=== PATIENT | male | born 1950 | race Caucasian/White ===

== ENCOUNTER 2019-03-27 13:24 | Inpatient (IN) | payer MEDICARE ==
[~2019-03-27 13:24] MED LIST: Lidocaine 1% PF 5 ML VIAL ONE; PHENYLEPHRINE-NS 100 MCG/ML 10 ML SYRINGE ONE; PROPOFOL 200 MG/20 ML VIAL ONE; Rocuronium Bromide 10 MG/ML (10ML VIAL) ONE; Succinylcholine Chloride 20 MG/ML 10 ml SYRINGE FS ONE; Vecuronium 10 MG VIAL ONE; ePHEDrine 50 MG/ML VIAL ONE
[2019-03-27 14:07] LABS: #Eosinphils 0.4 thou/uL (0.0-0.7); #Lymphocytes 1.7 thou/uL (1.20-3.40); #Monocytes 0.8 thou/uL (0.11-0.59); #Neutrophils 5.1 thou/uL (1.40-6.50); %Basophils 0.5 % (0.0-1.0); %Eosinophils 5.4 % (0.0-10.0); %Lymphocytes 20.8 % (21.0-51.0); %Monocytes 10.1 % (0.0-10.0); %Neutrophils 63.2 % (42.0-75.0); Hemoglobin 9.9 g/dL (14.0-18.0); Mean Corpuscular HGB CONC 33.9 g/dL (32.0-36.0); Mean Corpuscular Hemoglobin 30.8 pg (27.0-31.0); Mean Corpuscular Volume 90.8 fL (78.0-98.0); Mean Platelet Volume 7.9 fL (7.4-10.4); Platelet Count 224 thou/uL (130-400); RBC Distribution Width 12.1 % (11.5-14.5); White Blood Cell (WBC) Count 8.1 thou/uL (4.8-10.8)
--- NOTE | 2019-03-27 14:37 | RAD ---
PORTABLE CHEST: Date: 03-27-19 Provided Clinical History: Dyspnea. FINDINGS: Comparison 11-27-16. Cardiac and mediastinal silhouette are unchanged in appearance. Vascular calcification involves the a ortic arch. Prominence of the pulmonary interstitium appears similar to the prior study. There is no focal consolidation, pleural fluid or pneumothorax apparent. IMPRESSION: No evidence for an acute cardiopulmonary process. POS: TPC
[2019-03-27] MEDS ORDERED: Bupivacaine HCl 0.5%/Epinephrine 1:200,000/PF 30 ml Vial ONE (15:25)
[2019-03-27] MEDS ORDERED: Neomycin-Polymyxin 1 ML AMP ONE (15:25)
[2019-03-27 15:38] LABS: Anion Gap 12 mmol/L (10-20); BUN (Urea Nitrogen) 19 mg/dL (8.4-25.7); Calc. Creatinine Clearance 0 mL/min (70-130); Calcium 8.9 mg/dL (7.8-10.44); Carbon Dioxide 33 mmol/L (23-31); Chloride 95 mmol/L (98-107); Estimated GFR-MDRD 11; Glucose 246 mg/dL (80-115); Potassium 3.8 mmol/L (3.5-5.1); Sodium 136 mmol/L (136-145)
[2019-03-27] MEDS ORDERED: Clindamycin/D5W 900 mg/50 ml Premix Bag ONE (15:56)
[2019-03-27] MEDS ORDERED: Levofloxacin 500 mg/D5W 100 ml Premix Bag ONE (15:56)
[2019-03-27] MEDS ORDERED: Lidocaine 2% Jelly 5 ML TUBE ONE (15:59)
[2019-03-27] MEDS ORDERED: Fentanyl 100 MCG/2 ML VIAL ONE ×2 (15:59)
[2019-03-27] MEDS ORDERED: Midazolam HCl 2 mg/2 ml Vial ONE ×2 (15:59→17:05)
[2019-03-27] MEDS ORDERED: Ketamine 50 MG/ML (10ML VIAL) ONE (16:03)
[2019-03-27] MEDS ORDERED: Phenylephrine HCL 10 MG/ML VIAL ONE (16:51)
[2019-03-27] MEDS ORDERED: Vancomycin HCl 1 GM in Sodium Chloride 0.9% 250 ML 300 ML IVPB SCH (17:40)
[2019-03-27] MEDS ORDERED: niCARdipine 25 MG in Sodium Chloride 0.9% 250 ML 250 ML IVPB PRN (17:40)
[2019-03-27] MEDS ORDERED: Norepinephrine 8 MG/0.9% NS 250 ML IVPB PRN (17:40)
[2019-03-27] MEDS ORDERED: Ventilator Sedation Protocol 1 EACH FS SCH (17:40)
[2019-03-27 17:42] LABS: Actual Bicarbonate (HCO3a) 31.3 mEq/L (22-28); Base Excess (BEa) 6.8 mEq/L (-2.0 to +3.0); CO2 Tension 44.9 mmHg (35.0-45.0); Calcium, Ionized 1.03 mmol/L (1.12-1.30); Carboxyhemoglobin (COHb) 1.3 gm% (0.0-3.0); Hemoglobin (Hb) 9.2 g/dL (14.0-18.0); O2 Tension (PaO2) 65.7 mmHg (> 80.0); Potassium - ABG Lab 3.31 mmol/L (3.70-5.30); pH, Arterial 7.46 (7.35-7.45)
[2019-03-27 17:44] LABS: ALV-art Gradient 163.375 (0-20); Puncture Site RBRACH
--- NOTE | 2019-03-27 17:53 | RAD ---
XR Chest 1 View Portable HISTORY: Intubation COMPARISON: Earlier exam of the same day. FINDINGS: An endotracheal tube is in place which is in satisfactory position. No other interval vaca [place] IMPRESSION: Endotracheal tube in satisfactory position.
[2019-03-27] MEDS ORDERED: Sodium Chloride 0.9% 1,000 ML IV SCH ×2 (18:00→19:30)
[2019-03-27] MEDS ORDERED: Morphine 2 MG/ML SYRINGE SLOW IVP PRN (18:08)
[2019-03-27] MEDS ORDERED: Fentanyl BOLUS 250 ML IVPB PRN (18:08)
[2019-03-27] MEDS ORDERED: DISCONTINUE PREVIOUS NARCOTIC PAIN MEDICATIONS AND BENZODIAZEPINES FS SCH (18:08)
[2019-03-27] MEDS ORDERED: Lorazepam 2 MG/ML VIAL SLOW IVP PRN (18:08)
[2019-03-27] MEDS ORDERED: fentaNYL Citrate/PF 2,000 MCG in Sodium Chloride 0.9% 60 ML IV SCH (18:08)
[2019-03-27] MEDS ORDERED: Propofol BOLUS 1,000 MG/100 ML VIAL IV PRN (18:08)
[2019-03-27] MEDS ORDERED: Norepinephrine 8 MG in Dextrose 5% in Water 242 ML IVPB PRN (18:11)
[2019-03-27] MEDS ORDERED: Norepinephrine 8 MG in Sodium Chloride 0.9% 250 ML 242 ML IVPB PRN (18:22)
[2019-03-27] MEDS ORDERED: Dextrose 5% in Water 1,000 ML IV PRN (18:23)
[2019-03-27] MEDS ORDERED: Dextrose 50% Abboject 50 ML SYRINGE IVP PRN (18:23)
[2019-03-27] MEDS ORDERED: Vancomycin HCl 1 GM in Premix Bag 1 BAG IVPB SCH (18:30)
[2019-03-27] MEDS: methylPREDNISolone Sod Succ 40 MG VIAL IVP SCH ×2 (18:35→23:22)
[2019-03-27] MEDS: Propofol 1,000 MG/100 ML VIAL IV PRN ×2 (19:00→23:47)
[2019-03-27] MEDS: Famotidine/PF 20 mg/2ml Vial SLOW IVP SCH (20:36)
[2019-03-27] MEDS: Bacteriostatic Water 30 ML VIAL FS PRN (23:23)
--- NOTE | 2019-03-28 01:29 | HP ---
HISTORY OF PRESENT ILLNESS: This is a 68-year-old gentleman who underwent a coronary artery bypass grafting to the LAD and OM on 03/04/2019, at [facility] at the patient's request. His postoperative course was remarkable for pulmonary issues with coughing and paroxysms that were rather violent. The patient had some confusion while in the hospital, but for the most part, cooperated with physical therapy. He had previously been a pack-a-day smoker. Prior to his surgery, I instructed him that he needed to be off cigarettes for 2 weeks prior to surgery. The patient called the office and stated that he had stopped smoking, however, on presentation to the [facility] on 03/04, admitted that he had had a cigarette on the way to the hospital and that was his last one. PAST MEDICAL HISTORY: Includes insulin-dependent diabetes mellitus as well as hypertension and chronic renal failure, on hemodialysis q. M, W, F with Dr. Roblero in the past and currently with Dr. Fu. MEDICATIONS: Before his surgical intervention included: 1. Clonidine patch 0.3 mg weekly. 2. Minoxidil 5 mg b.i.d. 3. Omeprazole 40 mg a day. 4. Coreg 25 b.i.d. 5. Amlodipine 5 daily. 6. Clonidine 0.1 b.i.d. 7. Gabapentin 100 t.i.d. 8. Hydralazine 50 t.i.d. 9. Toujeo SoloStar 300 unit injector and I do not know his dose at home. At the time of discharge from [facility], he was on: 1. Aspirin 325 a day. 2. Atorvastatin 20 a day. 3. Tramadol as needed for pain. 4. Norvasc 5 mg a day. 5. Coreg 25 mg b.i.d. 6. Clonidine 0.3 mg patch. 7. Clonidine 0.1 b.i.d. 8. Omeprazole 40 mg daily. 9. Gabapentin 100 t.i.d. 10. Hydralazine 50 t.i.d. 11. Combivent inhaler. 12. Minoxidil 5 mg b.i.d. ALLERGIES: REPORTED TO PENICILLIN. PAST SURGICAL HISTORY: Cardiac cath with stent placement at some time in the past, left arm AV fistula, umbilical hernia repair with mesh, remote appendectomy, ACL repair, remote cholecystectomy and peritoneal dialysis catheter in 2015 converted to hemodialysis due to recurrent peritonitis. SOCIAL HISTORY: The patient is , retired from the construction business. PHYSICAL EXAMINATION: GENERAL: He is an alert and cooperative gentleman. Recorded height of 5 feet 7 inches, weight of about 190 pounds. NECK: No carotid bruits. CARDIAC: Regular rate and rhythm. No murmurs. CHEST: Incision widely opened in the lower one-half with bloody dressings in place. No active bleeding. ABDOMEN: Soft and nontender. EXTREMITIES: He has palpable femoral and popliteal pulses with no pedal pulses and his left arm has an AV fistula that has a good thrill. PLAN: At this time, is sternal debridement and washout and anticipate wound VAC placement if possible. I suspect he has a fairly complete sternal dehiscence and due to the fact that his wound is open, probably not safe to close the skin primarily with multiple bone fragments due to the risk of future infection. We will likely require several operative interventions to obtain closure. Job ID: [id number]
--- NOTE | 2019-03-28 01:57 | CON ---
DATE OF CONSULTATION: CONSULTING PHYSICIAN: Nickie Pearce MD REQUESTING PHYSICIAN: Dr. West. REASON FOR CONSULTATION: Need for maintenance hemodialysis. IMPRESSION: 1. End-stage renal disease on Sunday, Sunday, and Sunday schedule dialysis. 2. Coronary artery disease, status post recent coronary artery bypass surgery. 3. Wound dehiscence, likely in the context of wound infection. PLAN: 1. There is no emergent indication for dialysis, the patient is to be dialyzed tomorrow in accordance with the schedule with ultrafiltration as tolerated by hemodynamics. 2. Further management will be dependent on the clinical course. HISTORY OF PRESENT ILLNESS: History is that of a 68-year-old gentleman who recently did undergo coronary artery bypass surgery at [facility] due to multivessel disease. The patient has been recuperating very well, but for some time has been experiencing a little bleed around the surgical site which has increased lately necessitating presentation here where the patient has been diagnosed with wound infection, status post surgical fixation and wound VAC placement. The need for maintenance hemodialysis necessitated this consultation. PAST MEDICAL HISTORY: Significant for, 1. End-stage renal disease. 2. Coronary artery disease, status post coronary artery bypass surgery. 3. Anemia, likely anemia of chronic kidney disease. 4. Hypertension. FAMILY HISTORY: Not significantly related to presenting illness. SOCIAL HISTORY: . Denies alcohol, tobacco, or illicit drug use. REVIEW OF SYSTEMS: As documented in the body of history. All the other systems were reviewed and found not to be significantly related to present illness. PHYSICAL EXAMINATION: GENERAL: The patient was found to be intubated with the following vital signs. VITAL SIGNS: Blood pressure of 133/65, pulse of 67. HEENT: Remarkable for endotracheal tube in place. CARDIOVASCULAR SYSTEM: First and second heart sounds were heard. RESPIRATORY: Clear to auscultation. DIGESTIVE SYSTEM: Revealed a benign abdomen. EXTREMITIES: No peripheral edema. SKIN: No new gross rash. LYMPHATICS: No peripheral lymphadenopathy. SUMMARY: A 68-year-old gentleman with end-stage renal disease, who presented here with infected surgical site, status post coronary artery bypass. Thank you for this consultation. We will follow with you. Job ID: [id number]
[2019-03-28] MEDS: methylPREDNISolone Sod Succ 40 MG VIAL IVP SCH ×3 (05:47→17:50)
[2019-03-28] MEDS: Propofol 1,000 MG/100 ML VIAL IV PRN (05:47)
[2019-03-28 06:55] LABS: Actual Bicarbonate (HCO3a) 29.5 mEq/L (22-28); Base Excess (BEa) 3.4 mEq/L (-2.0 to +3.0); CO2 Tension 52.3 mmHg (35.0-45.0); Calcium, Ionized 1.06 mmol/L (1.12-1.30); Carboxyhemoglobin (COHb) 0.7 gm% (0.0-3.0); Hemoglobin (Hb) 10.7 g/dL (14.0-18.0); O2 Tension (PaO2) 76.4 mmHg (> 80.0); Potassium - ABG Lab 4.34 mmol/L (3.70-5.30); pH, Arterial 7.37 (7.35-7.45)
[2019-03-28 07:01] LABS: Puncture Site RBA
[2019-03-28 07:02] LABS: ALV-art Gradient 214.725 (0-20)
--- NOTE | 2019-03-28 08:13 | RAD ---
EXAM: 1 view chest PROVIDED CLINICAL HISTORY: Postoperative intubation. COMPARISON: 03/27/2019 FINDINGS: Endotracheal tube remains in place and unchanged in position. Postsurgical changes related to CABG ar e again noted. There is atelectasis present present at each lung base. There has been no other interval change compared to prior exam. IMPRESSION: Stable chest..
[2019-03-28 08:32] LABS: Anion Gap 19 mmol/L (10-20); BUN (Urea Nitrogen) 23 mg/dL (8.4-25.7); Calc. Creatinine Clearance 14 mL/min (70-130); Calcium 8.9 mg/dL (7.8-10.44); Carbon Dioxide 27 mmol/L (23-31); Chloride 95 mmol/L (98-107); Estimated GFR-MDRD 9; Glucose 196 mg/dL (80-115); Potassium 4.5 mmol/L (3.5-5.1); Sodium 136 mmol/L (136-145)
[2019-03-28 08:36] LABS: #Lymphocytes 1.1 thou/uL (1.20-3.40); #Monocytes 0.3 thou/uL (0.11-0.59); #Neutrophils 7.8 thou/uL (1.40-6.50); %Eosinophils 0.4 % (0.0-10.0); %Lymphocytes 12.1 % (21.0-51.0); %Monocytes 3.1 % (0.0-10.0); %Neutrophils 84.3 % (42.0-75.0); Hemoglobin 10.6 g/dL (14.0-18.0); Mean Corpuscular HGB CONC 34.2 g/dL (32.0-36.0); Mean Corpuscular Hemoglobin 31.2 pg (27.0-31.0); Mean Corpuscular Volume 91.2 fL (78.0-98.0); Mean Platelet Volume 8.3 fL (7.4-10.4); Platelet Count 240 thou/uL (130-400); RBC Distribution Width 12.2 % (11.5-14.5); Red Blood Cell (RBC) Count 3.41 mill/uL (4.70-6.10); White Blood Cell (WBC) Count 9.2 thou/uL (4.8-10.8)
[2019-03-28] MEDS: Insulin Regular 300 UNITS/3 ML VIAL SC PRN ×3 (09:21→23:35)
--- NOTE | 2019-03-28 09:24 | CON ---
DATE OF CONSULTATION: 03/28/2019 HISTORY OF PRESENT ILLNESS: Mr. Zhu was seen this morning. He underwent an operative procedure last night for a dehiscence of his sternum. We were consulted to assist in management in the ICU. He was left intubated with a wound VAC in place. Recently underwent coronary artery bypass grafting. Apparently, presented to [facility] with some bloody drainage coming from his wound. He was discharged home and then coughed and had dehiscence of his wound, and subsequently, admitted here for an operative procedure. PAST MEDICAL HISTORY: Remarkable for, 1. Coronary artery disease with recent bypass surgery. 2. History of diabetes. 3. History of chronic kidney disease with dialysis on Sunday, Sunday, Fridays. 4. History of hypertension. 5. History of lipid disorder. 6. History of coronary stenting in the past. 7. History of vascular access procedures. 8. History of an umbilical herniorrhaphy with mesh. 9. History of an appendectomy. 10. History of a knee surgery. 11. History of cholecystectomy. 12. History of peritoneal dialysis initially complicated by recurrent peritonitis. SOCIAL HISTORY: He is a nonsmoker and nondrinker. Retired from [employer] business. ALLERGIES: she reports ALLERGIES TO PENICILLIN. REVIEW OF SYSTEMS: Not obtainable. PHYSICAL EXAMINATION: GENERAL: Intubated, in no distress. VITAL SIGNS: Blood pressure was 95/52 when he was sedated. Heart rate was in the 60s. Respiratory rate was 12. Turned off his sedation, and throughout the morning, we have done a spontaneous breathing trial initially with pressure support of 10 , 5 of PEEP, and pressure support of 5 and 3 of PEEP. HEENT: Pupils are reactive. Sclerae are anicteric. CHEST: His sternum is bandaged with a wound VAC. LUNGS: Clear. HEART: Regular rhythm. ABDOMEN: Soft and nontender. EXTREMITIES: Without asymmetry or edema. LABORATORY DATA: White count 9.2, hemoglobin 10.6, platelets 240. Sodium 136, potassium 4.5, chloride 95, bicarb 27, BUN 23, creatinine 6.17. PH of 7.37, CO2 of 52, pO2 is 76. Gram-negative rods growing out of his sternum. IMPRESSION: Sternal dehiscence associated with a wound infection. He is on a quinolone and vancomycin. I am surprised that this is a gram-negative sternal infection as opposed to a Staph infection. I felt he was a candidate for extubation after spontaneous breathing trial. This has been done successfully. Would probably need dialysis today or tomorrow. Today is his normal day, so hopefully we can get this arranged. He does not have any evidence of pulmonary edema at this time on chest radiograph. We will follow along with the other physicians caring for him. Critical care time is 35 minutes. Job ID: [id number] MTDD
--- NOTE | 2019-03-28 11:48 | OP ---
DATE OF PROCEDURE: 03/27/2019 PREOPERATIVE DIAGNOSIS: Sternal dehiscence from violent coughing spells. PROCEDURE STERNAL: Sternal exploration, debridement, and placement of wound VAC. ANESTHESIA: General. ESTIMATED BLOOD LOSS: Minimal. DESCRIPTION OF PROCEDURE: After adequate anesthesia had been obtained, the patient was prepped and draped. The sternal wound was already opened and suture material was removed. It was free in the wound. Two wires had pulled completely through one side of the sternum. Each of these were cut and removed. The two bottom zip ties were intact with both had pulled through the sternum and these were cut and removed. The uppermost zip ties and the manubrial wires were not removed at this time to help to some extent hold the bone close to the midline to minimize the risk of right ventricular laceration. Some sternal bone fragments were debrided as were some sharp edges and then the area was thoroughly irrigated and the curette was used to remove any clots on this subcutaneous tissue. Wound VAC was then placed with packing in between the bones to minimize motion. #2 nylon sutures were placed, 2 at the upper part and 1 at the bottom part of the incision also to help minimize motion. The patient is to be taken to the ICU in guarded condition. Job ID: [id number]
[2019-03-28] MEDS ORDERED: HYDROcodone/Acetaminophen 5/325 mg Tablet PO PRN (16:03)
[2019-03-28] MEDS: HYDROcodone/Acetaminophen 5/325 mg Tablet PO PRN ×2 (16:41→22:01)
[2019-03-28] MEDS: Famotidine/PF 20 mg/2ml Vial SLOW IVP SCH (20:05)
--- NOTE | 2019-03-28 22:33 | PRG ---
DATE OF SERVICE: 03/28/2019 SUBJECTIVE: The patient was seen and examined, noted with the following vital signs. OBJECTIVE: VITAL SIGNS: Blood pressure 130/59, pulse of 83, respiratory rate of 19, O2 saturation 92% to 95%. HEENT: Unremarkable. CARDIOVASCULAR: First and second heart sounds were heard. RESPIRATORY: Clear to auscultation. DIGESTIVE SYSTEM: Revealed a benign abdomen. Positive bowel sounds. EXTREMITIES: No peripheral edema. SKIN: No new gross rash. LYMPHATICS: No peripheral lymphadenopathy. IMPRESSION: 1. End-stage renal disease, on hemodialysis, due for dialysis today. 2. Coronary artery disease status post recent bypass surgery. 3. Wound dehiscence/infection of the surgical wound. PLAN: 1. The patient to be dialyzed today in accordance with the schedule with ultrafiltration as tolerated by hemodynamics. 2. Further management will be dependent on the clinical course. Job ID: [id number]
[2019-03-29] MEDS: methylPREDNISolone Sod Succ 40 MG VIAL IVP SCH ×3 (00:29→11:26)
[2019-03-29] MEDS: HYDROcodone/Acetaminophen 5/325 mg Tablet PO PRN (02:14)
[2019-03-29] MEDS: Bacteriostatic Water 30 ML VIAL FS PRN (06:21)
[2019-03-29] MEDS: Insulin Regular 300 UNITS/3 ML VIAL SC PRN ×4 (06:22→20:34)
[2019-03-29] MEDS ORDERED: traMADol HCl 50 MG TAB PO PRN (09:14)
[2019-03-29] MEDS ORDERED: Insulin Glargine 15 UNITS in Pre-Filled Syringe 1 EACH SC SCH (11:30)
[2019-03-29] MEDS: Benzonatate 100 MG CAP PO PRN ×2 (11:50→20:32)
--- NOTE | 2019-03-29 11:57 | PRG ---
DATE OF SERVICE: 03/29/2019 SERVICE: Pulmonary Medicine. INTERVAL HISTORY: The patient is doing fine from respiratory standpoint. He is breathing comfortably. Every once in a while, he has a little bit of chest discomfort, which is exacerbated by coughing. He would like a cough suppressant. He is actually on his MAR, but he has not told his nursing staff that he would like one. He denies any current fevers, chills, nausea, or vomiting. Otherwise, there are no significant overnight events. After he got some insulin, he felt like his sugars went too low, though they were normal. PHYSICAL EXAMINATION: VITAL SIGNS: Afebrile, pulse 86, blood pressure 163/101, respirations 22, and saturation 93% on 2 L nasal cannula. GENERAL: The patient is awake and alert, in no apparent distress. LUNGS: Decent air entry. There is a slightly prolonged expiratory phase. A little bit of wheezing and crackles are both present. HEART: Normal rate. Regular. ABDOMEN: Soft, nontender, and nondistended. Bowel sounds are positive. MUSCULOSKELETAL: No cyanosis or clubbing. There is no pitting edema. NEUROLOGIC: Grossly nonfocal. LABORATORY DATA: Blood sugars ranged from 109 to 252. Sternal fluid is growing Proteus species. ASSESSMENT: 1. Acute hypoxic respiratory failure. 2. Chronic obstructive pulmonary disease with minimal exacerbation. 3. Sternal wound infection secondary to Proteus. 4. Recent coronary artery bypass graft. 5. Type 2 diabetes mellitus, uncontrolled. 6. End-stage renal disease. DISCUSSION AND PLAN: I will introduce some long-acting insulin. We will continue his short-acting insulin if necessary. Pulmonary/Critical Care will continue to follow along while the patient remains in the hospital. From my perspective, he is stable for transition out of the ICU. Job ID: [id number]
[2019-03-29] MEDS ORDERED: Benzonatate 100 MG CAP PO SCH (13:00)
[2019-03-29 13:43] VITALS: BMI 26.6
[2019-03-29] MEDS: traMADol HCl 50 MG TAB PO PRN (18:16)
[2019-03-29] MEDS: Famotidine/PF 20 mg/2ml Vial SLOW IVP SCH (20:32)
[2019-03-30] MEDS: predniSONE 20 MG TAB PO SCH (07:40)
[2019-03-30] MEDS: Carvedilol 25 MG TAB PO SCH ×2 (08:25→20:32)
[2019-03-30] MEDS: Amlodipine 5 MG TAB PO SCH (08:25)
[2019-03-30] MEDS: Insulin Glargine 15 UNITS in Pre-Filled Syringe 1 EACH SC SCH (08:26)
--- NOTE | 2019-03-30 09:28 | PRG ---
DATE OF SERVICE: 03/30/2019 SERVICE: Pulmonary Medicine. INTERVAL HISTORY: The patient is doing really well from respiratory standpoint. He is breathing comfortably. His wound VAC sprung a leak last night. As such, he ended up, but not having being on full suction. The Wound VAC team has just replaced his dressing. He denies any current chest pain, shortness of breath, nausea, or vomiting. Otherwise, he is in his usual state of health. His family yesterday was feeding him jelly donuts. We have asked him not to take outside food with high carbohydrate content, especially since that is part of the reason he has returned to the hospital. PHYSICAL EXAMINATION: VITAL SIGNS: Afebrile, pulse 83, blood pressure 171/91, respirations 15, and saturation 94% on room air. GENERAL: The patient is awake and alert, in no apparent distress. LUNGS: Decent air entry with no prolonged expiratory phase or wheezing appreciated. HEART: Normal rate. Regular. ABDOMEN: Soft, nontender, and nondistended. Bowel sounds are positive. MUSCULOSKELETAL: No cyanosis or clubbing. No pitting in the bilateral lower extremities. NEUROLOGIC: Grossly nonfocal. LABORATORY DATA: Blood sugars have ranged from 109 to 255. Sternal fluid is growing Proteus mirabilis and Pseudomonas. Both of these are pansensitive species. ASSESSMENT: 1. Acute hypoxic respiratory failure, resolved. 2. Chronic obstructive pulmonary disease with minimal exacerbation. 3. Sternal wound infection secondary to Proteus and Pseudomonas. 4. Recent coronary artery bypass graft. 5. Type 2 diabetes mellitus, improving control. 6. End-stage renal disease. DISCUSSION AND PLAN: We will continue to titrate up his long-acting insulin through time. I will schedule 3 units of premeal insulin. He will remain in the ICU for the time being. Job ID: [id number]
[2019-03-30] MEDS: HumaLOG 300 UNITS/3 ML VIAL SC SCH ×2 (11:36→17:10)
[2019-03-30] MEDS: Insulin Regular 300 UNITS/3 ML VIAL SC PRN ×2 (11:37→20:34)
--- NOTE | 2019-03-30 18:38 | PRG ---
DATE OF SERVICE: 03/30/2019 SUBJECTIVE: The patient was noted with the following vital signs. OBJECTIVE: VITAL SIGNS: Blood pressure 173/102, pulse of 78, respiratory rate of 21, and O2 saturation of 95%. HEENT: Unremarkable. CARDIOVASCULAR SYSTEM: First and second heart sounds were heard. RESPIRATORY SYSTEM: Clear to auscultation. DIGESTIVE SYSTEM: Revealed a benign abdomen. Positive bowel sounds. EXTREMITIES: No peripheral edema. SKIN: No new gross rash. LYMPHATICS: No peripheral lymphadenopathy. IMPRESSION: 1. End-stage renal disease, on hemodialysis. 2. Coronary artery disease, status post bypass surgery. 3. Wound dehiscence on treatment with wound VAC. PLAN: 1. The patient to stay in ICU overnight, possibly transition out of ICU after dialysis tomorrow. 2. The patient to continue with scheduled Sunday, Sunday, and Sunday, therefore, the patient is due for dialysis tomorrow. Job ID: [id number]
--- NOTE | 2019-03-30 18:44 | PRG ---
DATE OF SERVICE: 03/29/2019 SUBJECTIVE: The patient noted with the following vital signs. OBJECTIVE: VITAL SIGNS: Blood pressure 159/82, pulse of 82, respiratory rate of 20. HEENT: Unremarkable. CARDIOVASCULAR SYSTEM: First and second heart sounds were heard. RESPIRATORY SYSTEM: Clear to auscultation. DIGESTIVE SYSTEM: Revealed a benign abdomen. EXTREMITIES: No peripheral edema. SKIN: No new gross rash. LYMPHATICS: No peripheral lymphadenopathy. IMPRESSION: 1. End-stage renal disease, on hemodialysis Sunday, Sunday and Sunday, and dialyzed yesterday. 2. Wound dehiscence. 3. Coronary artery disease, status post bypass surgery. PLAN: 1. The patient to continue with current schedule of Sunday, Sunday, and Sunday dialysis. 2. Further management will be dependent on the clinical course. Job ID: [id number]
[2019-03-30] MEDS: Benzonatate 100 MG CAP PO PRN (19:32)
[2019-03-30] MEDS: Famotidine/PF 20 mg/2ml Vial SLOW IVP SCH (20:32)
[2019-03-31] MEDS: Carvedilol 25 MG TAB PO SCH ×2 (07:12→20:51)
[2019-03-31] MEDS: Amlodipine 5 MG TAB PO SCH (07:12)
[2019-03-31] MEDS: predniSONE 20 MG TAB PO SCH (07:12)
[2019-03-31] MEDS: Insulin Glargine 15 UNITS in Pre-Filled Syringe 1 EACH SC SCH ×2 (07:13→20:57)
[2019-03-31] MEDS: HumaLOG 300 UNITS/3 ML VIAL SC SCH ×3 (07:14→17:34)
--- NOTE | 2019-03-31 08:47 | PRG ---
DATE OF SERVICE: 03/31/2019 SUBJECTIVE: This morning, he is awake, alert, and responsive. He was extubated yesterday. Denies any pain or shortness of breath. OBJECTIVE: VITAL SIGNS: His saturations are 98% on room air, pulse is 76, blood pressure 160/88. CHEST: Decreased breath sounds. No wheezing. CARDIAC: Normal S1, S2. No gallops. ABDOMEN: No masses. IMPRESSION: 1. Status post coronary artery bypass grafting, wound dehiscence, infected wound. 2. Renal failure, weakness. PLAN: Disposition as per Surgery. Continue antibiotics, neb treatments, supportive care. We will follow while in the ICU. Job ID: [id number]
[2019-03-31] MEDS ORDERED: Famotidine 20 MG TAB PO SCH (09:00)
[2019-03-31] MEDS: Aspirin 81 mg Enteric Coated Tablet PO SCH (09:33)
[2019-03-31] MEDS: cloNIDine 0.3mg/24 Hour PATCH TD SCH ×2 (09:33→09:34)
[2019-03-31] MEDS: cloNIDine 0.1 MG TAB PO SCH ×2 (09:34→20:51)
[2019-03-31] MEDS: Benzonatate 100 MG CAP PO PRN ×2 (15:47→20:52)
[2019-03-31] MEDS ORDERED: Sodium Chloride 0.9% 10 ML ONE (20:34)
[2019-03-31] MEDS: Famotidine 20 MG TAB PO SCH (20:51)
[2019-03-31] MEDS: Atorvastatin Calcium 20 MG TAB PO SCH (20:51)
[2019-04-01] MEDS: HumaLOG 300 UNITS/3 ML VIAL SC SCH ×3 (08:27→17:58)
[2019-04-01] MEDS: cloNIDine 0.1 MG TAB PO SCH ×2 (08:29→21:40)
[2019-04-01] MEDS: Aspirin 81 mg Enteric Coated Tablet PO SCH (08:29)
[2019-04-01] MEDS: Amlodipine 5 MG TAB PO SCH ×2 (08:29→21:40)
[2019-04-01] MEDS: Carvedilol 25 MG TAB PO SCH ×2 (08:31→21:40)
[2019-04-01] MEDS: predniSONE 20 MG TAB PO SCH (08:31)
[2019-04-01] MEDS: traMADol HCl 50 MG TAB PO PRN (09:44)
[2019-04-01] MEDS: Insulin Glargine 15 UNITS in Pre-Filled Syringe 1 EACH SC SCH ×2 (09:47→21:41)
--- NOTE | 2019-04-01 10:51 | PRG ---
DATE OF SERVICE: 04/01/2019 SUBJECTIVE: A 68-year-old gentleman, this morning, he denies any pain or discomfort. OBJECTIVE: VITAL SIGNS: Temperature 98, pulse 77, saturations 100%, blood pressure 156/80. CHEST: Decreased breath sounds. No wheezing. CARDIAC: Normal S1 and S2. No gallops. ABDOMEN: No masses. ASSESSMENT: Gram-negative sternal infection, status post coronary artery bypass graft, deconditioning, chronic obstructive pulmonary disease. PLAN: Continue present treatment, supportive care. Pulmonary will follow. Continue antibiotics. Job ID: [id number]
[2019-04-01] MEDS ORDERED: predniSONE 20 MG TAB PO SCH (15:51)
--- NOTE | 2019-04-01 18:44 | PRG ---
DATE OF SERVICE: 04/01/2019 SUBJECTIVE: The patient was seen and examined, seems to be doing much better. OBJECTIVE: VITAL SIGNS: Noted with the following vital signs; afebrile, temperature 97.6, pulse 77, respiratory rate of 15, O2 saturations 96% with blood pressure of 141/76. HEENT: Unremarkable with moist oral mucosa. NECK: Supple. No conjunctival injection or icterus. CARDIOVASCULAR: First and second sounds were heard. RESPIRATORY: Clear to auscultation. DIGESTIVE: Revealed a benign abdomen. Positive bowel sounds. EXTREMITIES: No peripheral edema. SKIN: No new gross rash. LYMPHATICS: No peripheral lymphadenopathy. IMPRESSION: 1. End-stage renal disease, on hemodialysis. 2. Coronary artery disease, status post bypass surgery. 3. Status post wound dehiscence of open heart surgery. PLAN: 1. The patient to continue with current schedule of hemodialysis on Sunday, Sunday, and Sunday. The patient to be due for dialysis tomorrow. 2. Further management to be dependent on the clinical course. Job ID: [id number]
[2019-04-01] MEDS: Benzonatate 100 MG CAP PO PRN (21:39)
[2019-04-01] MEDS: Atorvastatin Calcium 20 MG TAB PO SCH (21:40)
[2019-04-01] MEDS: Famotidine 20 MG TAB PO SCH (21:40)
[2019-04-02] MEDS: HumaLOG 300 UNITS/3 ML VIAL SC SCH ×3 (09:17→18:16)
[2019-04-02] MEDS: Amlodipine 5 MG TAB PO SCH (09:17)
[2019-04-02] MEDS: Carvedilol 25 MG TAB PO SCH (09:21)
[2019-04-02] MEDS: cloNIDine 0.1 MG TAB PO SCH (09:21)
--- NOTE | 2019-04-02 09:52 | PRG ---
DATE OF SERVICE: 04/02/2019 SUBJECTIVE: Darshan Zhu, 60-year-old gentleman being dialyzed this morning. OBJECTIVE: GENERAL: He is in no distress. VITAL SIGNS: Temperature 98, pulse 70, respirations 16, saturations 90% on room air, blood pressure 157/74. CHEST: No wheezing or crackles. CARDIAC: Normal S1 and S2. No gallops. ABDOMEN: No masses. IMPRESSION: Sternal wound infection and status post debridement, chronic renal failure, status post coronary artery bypass graft. PLAN: Continue present care, supportive care, antibiotics. We will follow. Job ID: [id number]
[2019-04-02] MEDS: Insulin Glargine 15 UNITS in Pre-Filled Syringe 1 EACH SC SCH (10:56)
[2019-04-02 12:41] VITALS: TEMP 97.6
[2019-04-02] MEDS: Aspirin 81 mg Enteric Coated Tablet PO SCH (12:42)
[2019-04-02 14:23] VITALS: BP 124/72
[2019-04-02] MEDS: Benzonatate 100 MG CAP PO PRN (19:20)
--- NOTE | 2019-04-03 11:12 | DIS ---
DATE OF ADMISSION: 03/27/2019 DATE OF DISCHARGE: 04/02/2019 HOSPITAL COURSE: This is a 68-year-old gentleman, who underwent coronary artery bypass grafting x2 about 3 weeks prior to this admission. While in the hospital at [facility], at that time, he had rather severe coughing paroxysms. Surprisingly, his sternum appeared to be intact at the time of discharge. Unfortunately, the patient continued to have uncontrollable coughing spells, and on the day prior to admission coughed hard enough to disrupt his lower skin incision and had some bleeding. He was seen in the emergency room and sent home only to return the next day with coughing spell resulted in opening up of his sternal skin incision. He was seen in the emergency room on 03/27/2019 with an open wound, EKG leads draped across his open wound. He was taken to the operating room, where cultures were drawn. He had pulled his lower sternal wires through the sternum as well as his lower 2 zip ties. His uppermost zip ties and sternal wires were left in place to keep his sternum relatively close to the midline to minimize the risk of right ventricular laceration. He had no evidence of infection and cultures were taken at that time and returned normal skin tania as well as few Proteus mirabilis, rare Pseudomonas, and Staph aureus too few to quantitate. His postoperative course was uneventful and he underwent wound VAC changes and hemodialysis. He remained afebrile with a normal white count throughout his hospital course with a hemoglobin of 10 g. He will be discharged home today to follow up with outpatient wound VAC therapy and ultimately will refer to Plastic Surgery for consideration of muscle flap closure. Discharge medications are listed in his reconciliation. Job ID: [id number]
== END 2019-04-02 19:30 | disposition home or self-care (01) | DRG 907 ==
LOC: ERS 13:24 → CCU 17:20 → 2NO 03-31 10:36
PROVIDERS: ADMIT Thoracic Surgery (Cardiothoracic Vascular Surgery); ATTEND Thoracic Surgery (Cardiothoracic Vascular Surgery)
PROC: 0PB00ZZ Excision of Sternum, Open Approach (ICD-10-PCS; principal; 2019-03-27)
PROC: 2W14X6Z Compression of Chest Wall using Pressure Dressing (ICD-10-PCS; 2019-03-27)
PROC: 5A1D70Z Performance of Urinary Filtration, Intermittent, Less than 6 Hours Per Day (ICD-10-PCS; 2019-03-28)
DX: T81.32XA Disruption of internal operation (surgical) wound, not elsewhere classified, initial encounter (principal); J96.01 Acute respiratory failure with hypoxia; N18.6 End stage renal disease; I12.0 Hypertensive chronic kidney disease with stage 5 chronic kidney disease or end stage renal disease; T81.49XA Infection following a procedure, other surgical site, initial encounter; J44.1 Chronic obstructive pulmonary disease with (acute) exacerbation; I25.10 Atherosclerotic heart disease of native coronary artery without angina pectoris; D63.1 Anemia in chronic kidney disease; B96.4 Proteus (mirabilis) (morganii) as the cause of diseases classified elsewhere; E11.22 Type 2 diabetes mellitus with diabetic chronic kidney disease; Z95.1 Presence of aortocoronary bypass graft; Z79.4 Long term (current) use of insulin; Z99.2 Dependence on renal dialysis; Z79.82 Long term (current) use of aspirin; Z79.899 Other long term (current) drug therapy; Z88.0 Allergy status to penicillin; Z95.5 Presence of coronary angioplasty implant and graft; Z90.49 Acquired absence of other specified parts of digestive tract
CPT/HCPCS: 36415; 36416; 71045; 71046; 80048; 82805; 85025; 86850; 86900; 86901; 87070; 87077; 87186; 87205; 90935; 93798; 94002; 94003; 94640; G0257; J0670; J1815; J1956; J2001; J2250; J2370; J2704; J2920; J3010; J3370; J3490; J7512; J7620; S0028

== ENCOUNTER 2019-04-04 11:09 | Outpatient (CLI) | payer MEDICARE ==
[~2019-04-04 11:09] MED LIST changes: -Lidocaine 1% PF 5 ML VIAL ONE; -PHENYLEPHRINE-NS 100 MCG/ML 10 ML SYRINGE ONE; -PROPOFOL 200 MG/20 ML VIAL ONE; -Rocuronium Bromide 10 MG/ML (10ML VIAL) ONE; +Sodium Chloride 0.9% 15 ML NEB ONE; -Succinylcholine Chloride 20 MG/ML 10 ml SYRINGE FS ONE; -Vecuronium 10 MG VIAL ONE; -ePHEDrine 50 MG/ML VIAL ONE
== END 2019-04-04 11:10 | disposition home or self-care (01) ==
LOC: WCC 11:09
PROVIDERS: ATTEND Family Medicine
DX: T81.89XD Other complications of procedures, not elsewhere classified, subsequent encounter (principal)
CPT/HCPCS: 97605; A4218

== ENCOUNTER 2019-04-08 11:22 | Outpatient (CLI) | payer MEDICARE | END 2019-04-08 11:23 | disposition home or self-care (01) | LOC: WCC 11:22 | PROVIDERS: ATTEND Family Medicine | DX: T81.89XD Other complications of procedures, not elsewhere classified, subsequent encounter (principal) | CPT/HCPCS: 97605; A4218 ==

== ENCOUNTER 2019-04-11 08:41 | Outpatient (CLI) | payer MEDICARE | END 2019-04-11 08:42 | disposition home or self-care (01) | LOC: WCC 08:41 | PROVIDERS: ATTEND Family Medicine | DX: T81.89XD Other complications of procedures, not elsewhere classified, subsequent encounter (principal) | CPT/HCPCS: 97605 ==

== ENCOUNTER 2019-04-11 19:51 | Emergency (ER) | payer MEDICARE | END 2019-04-11 21:45 | disposition home or self-care (01) | LOC: ERS 19:51 | DX: T85.698A Other mechanical complication of other specified internal prosthetic devices, implants and grafts, initial encounter (principal); E11.9 Type 2 diabetes mellitus without complications; I10 Essential (primary) hypertension; J44.9 Chronic obstructive pulmonary disease, unspecified; Z99.2 Dependence on renal dialysis; J43.9 Emphysema, unspecified; Z87.891 Personal history of nicotine dependence | CPT/HCPCS: 99283 ==

== ENCOUNTER 2019-04-15 15:26 | Outpatient (CLI) | payer MEDICARE | END 2019-04-15 15:27 | disposition home or self-care (01) | LOC: WCC 15:26 | PROVIDERS: ATTEND Family Medicine | DX: T81.89XD Other complications of procedures, not elsewhere classified, subsequent encounter (principal) | CPT/HCPCS: 97605; A4218 ==

== ENCOUNTER 2019-04-18 11:49 | Outpatient (CLI) | payer MEDICARE | END 2019-04-18 11:50 | disposition home or self-care (01) | LOC: WCC 11:49 | PROVIDERS: ATTEND Family Medicine | DX: T81.89XD Other complications of procedures, not elsewhere classified, subsequent encounter (principal) | CPT/HCPCS: 97605; A4218 ==

== ENCOUNTER 2019-04-22 10:12 | Outpatient (CLI) | payer MEDICARE | END 2019-04-22 10:13 | disposition home or self-care (01) | LOC: WCC 10:12 | PROVIDERS: ATTEND Family Medicine | DX: T81.89XD Other complications of procedures, not elsewhere classified, subsequent encounter (principal) | CPT/HCPCS: A4218 ==

== ENCOUNTER 2019-04-25 11:31 | Outpatient (CLI) | payer MEDICARE | END 2019-04-25 11:32 | disposition home or self-care (01) | LOC: WCC 11:31 | PROVIDERS: ATTEND Family Medicine | DX: T81.89XD Other complications of procedures, not elsewhere classified, subsequent encounter (principal) | CPT/HCPCS: 97605 ==

== ENCOUNTER 2019-04-29 14:55 | Outpatient (CLI) | payer MEDICARE ==
[2019-04-29] MEDS ORDERED: Sodium Chloride 0.9% 15 ML NEB ONE (15:00)
== END 2019-04-29 14:56 | disposition home or self-care (01) ==
LOC: WCC 14:55
PROVIDERS: ATTEND Family Medicine
DX: T81.89XD Other complications of procedures, not elsewhere classified, subsequent encounter (principal)
CPT/HCPCS: A4218

== ENCOUNTER 2019-05-02 10:29 | Outpatient (CLI) | payer MEDICARE ==
[2019-05-02] MEDS ORDERED: Sodium Chloride 0.9% 15 ML NEB ONE (17:50)
== END 2019-05-02 10:30 | disposition home or self-care (01) ==
LOC: WCC 10:29
PROVIDERS: ATTEND Family Medicine
DX: T81.89XD Other complications of procedures, not elsewhere classified, subsequent encounter (principal)
CPT/HCPCS: 97605; A4218

== ENCOUNTER 2019-05-05 14:59 | Outpatient (CLI) | payer MEDICARE ==
[2019-05-05] MEDS ORDERED: Sodium Chloride 0.9% 15 ML NEB ONE (17:00)
--- NOTE | 2019-05-05 22:47 | HP ---
HISTORY OF PRESENT ILLNESS: Mr. Darshan Zhu is a very pleasant 68-year-old gentleman, who presents [facility] for evaluation of a sternal wound subsequent to sternal exploration, debridement and wound VAC placement on 03/27/[address] Jony West. Previously, the patient had undergone coronary artery bypass grafting x2 by Dr. West approximately 3 weeks previously at [facility]. 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 The patient states that he is to undergo muscle flap closure by Dr. Beltran in 4 days. PAST MEDICAL HISTORY: 1. Coronary artery disease. 2. Hypertension. 3. Diabetes mellitus. 4. End-stage renal disease. 5. COPD/emphysema. 6. Gastroesophageal reflux disease. 7. Left eye blindness. 8. Migraines. 9. Anemia. PAST SURGICAL HISTORY: 1. Umbilical hernia repair with mesh. 2. Appendectomy. 3. Right knee surgery. 4. Fistulotomy. 5. Cholecystectomy. 6. Excision of skin carcinoma. 7. Dialysis access procedures. 8. Right foot surgery. 9. Sternal exploration/debridement/VAC placement. 10. Coronary artery bypass grafting x2. MEDICATIONS: 1. Clonidine patch. 2. Coreg. 3. Lipitor. 4. Aspirin 325 mg. 5. AREDS. 6. Neurontin. 7. Nexium. 8. Catapres. 9. Norvasc. 10. Ultram. 11. Insulin. ALLERGIES: PENICILLIN. SOCIAL HISTORY: Social history significant for tobacco use of approximately 1 pack of cigarettes per day for 50 years. The patient states that he stopped smoking in March of this year. The patient denies any history of EtOH use. FAMILY HISTORY: Family history significant for coronary artery disease. The patient states that his mother and father were both diagnosed with coronary artery disease. Family history is also significant for diabetes mellitus. The patient states that his father was diagnosed with diabetes mellitus. PHYSICAL EXAMINATION: VITAL SIGNS: Temperature 97.7, pulse 86, respirations 20, blood pressure 123/64. Accu-Chek 197. GENERAL: 68-year-old gentleman, sitting on chair in examination room, in no acute distress. HEENT: Normocephalic, atraumatic. NECK: No nuchal rigidity. CHEST: Clear to auscultation. A sternal wound is present in the midline, granulation tissue is present within the wound margins. No purulent drainage is associated with the wound. No erythema of the skin surrounding the wound is appreciated. No maceration of the skin of the periwound is noted. CV: Regular rate and rhythm. ABDOMEN: Soft. EXTREMITIES: No clubbing or cyanosis. NEURO: Grossly nonfocal. ASSESSMENT AND PLAN: 1. Sternal wound as described above. Negative pressure therapy will be continued. As stated above, the patient is to undergo muscle flap closure in [address] Beltran. The patient will return to the [facility] as needed after surgery by Dr. Beltran. 2. Coronary artery disease. 3. Hypertension. 4. Diabetes mellitus. The patient's Accu-Chek in clinic today is 197. The patient has been told that for optimal wound healing, his blood glucoses should remain below 150. 5. End-stage renal disease. 6. Chronic obstructive pulmonary disease/emphysema. 7. Gastroesophageal reflux disease. 8. Left eye blindness. 9. Migraines. 10. Anemia. Job ID: [id number]
== END 2019-05-05 15:00 | disposition home or self-care (01) ==
LOC: WCC 14:59
PROVIDERS: ATTEND Family Medicine
DX: T81.89XD Other complications of procedures, not elsewhere classified, subsequent encounter (principal)
CPT/HCPCS: 36416; 97602; 99204; A4218; G0463